=== PATIENT | male | born 1955 | race Caucasian/White ===

== ENCOUNTER 2018-03-06 15:19 | Emergency (ER) | payer OTHER ==
[~2018-03-06] VITALS: Ht 180.3 cm; Wt 100.8 kg
[~2018-03-06 15:19] MED LIST: ATEN50TA2 PO; WARF-82; [UNRECOGNIZED DRUG - OTHER]; [UNRECOGNIZED DRUG - REMARK]
[2018-03-06 15:27] VITALS: BP 153/76
--- NOTE | 2018-03-06 15:30 | NUR ---
PT AMBULATES TO BED 1, REPORT GIVEN TO BRIGHT MARIN
--- NOTE | 2018-03-06 15:45 | NUR ---
PATIENT PRESENTS TO ED WITH COMPLAINTS OF RECTAIL PAIN AND BLEEDING X 3 WEEKS. PATIENT STATES 3 WEEKS AGO IT STARTED OUT LIGHT AND NOW IT IS CLOTTING. DENIES N/V/D; SKIN IS PINK/WARM/DRY; AAOX4 WITH EVEN AND STEADY GAIT; LUNGS CLEAR BL; HR EVEN AND REGULAR; PT DENIES ANY FEVER, CP, SOB, OR COUGH AT THIS TIME; PATIENT STATES PAIN OF 2/10 AT THIS TIME; VSS; PATIENT POSITIONED FOR COMFORT; HOB ELEVATED; BEDRAILS UP X1; BED DOWN. ER MD MADE AWARE OF PT STATUS.
--- NOTE | 2018-03-06 16:10 | NUR ---
Patient appears to be resting comfortably in bed. Vital Signs within normal limits. Respirations even and unlabored.
--- NOTE | 2018-03-06 16:30 | NUR ---
PATIENT TAKEN TO CT
[2018-03-06] MEDS ORDERED: NACL 0.9% 1,000 ML IV SCH (16:37)
[2018-03-06] MEDS ORDERED: PANTOPRAZOLE 40 MG INJ VIAL IVP ONE (16:40)
[2018-03-06] MEDS ORDERED: FAMOTIDINE 20 MG/2 ML VIAL IVP ONE (16:40)
[2018-03-06 17:10] LABS: BASOPHILS # (AUTO) 0.1 K/uL (0.00-0.22); BASOPHILS % (AUTO) 0.6 % (0.0-2.0); EOSINOPHILS # (AUTO) 0.5 K/uL (0-0.4); EOSINOPHILS % (AUTO) 4.7 % (0.0-4.0); HEMATOCRIT 45.6 % (36-52); LYMPHOCYTES # (AUTO) 2.7 K/uL (2.0-11.5); LYMPHOCYTES % (AUTO) 27.8 % (20.5-51.1); MEAN CORPUSCULAR HEMOGLOBIN 31 pg (27-31); MEAN CORPUSCULAR HGB CONC 33 g/dL (33-37); MEAN CORPUSCULAR VOLUME 93.7 fL (80-94); MONOCYTES # (AUTO) 0.9 K/uL (0.8-1.0); MONOCYTES % (AUTO) 9.8 % (1.7-9.3); NEUTROPHILS # (AUTO) 5.5 K/uL (1.8-7.7); NEUTROPHILS % (AUTO) 57.1 % (42.2-75.2); PLATELET COUNT (AUTO) 216 K/uL (140-450); RED BLOOD CELL COUNT(AUTO) 4.86 MIL/uL (4.20-6.10); RED CELL DISTRIBUTION WIDTH 13.1 % (11.6-13.7); WHITE BLOOD COUNT (AUTO) 9.6 K/uL (4.8-10.8)
[2018-03-06 17:26] LABS: PROTHROMBIN TIME 10.6 secs (10.8-13.4)
[2018-03-06 17:28] LABS: ALBUMIN 3.5 g/dL (3.4-5.0); ANION GAP 6.7 (8-16); CARBON DIOXIDE 30.5 mmol/L (21-32); CREATININE 1.1 mg/dL (0.7-1.3); POTASSIUM 4.2 mmol/L (3.5-5.1); TOTAL BILIRUBIN 0.6 mg/dL (0.0-1.0)
--- NOTE | 2018-03-06 17:35 | NUR ---
Patient appears to be resting comfortably in bed. Vital Signs within normal limits. Respirations even and unlabored.
[2018-03-06] MEDS: NACL 0.9% 1,000 ML IV SCH ×2 (17:45→18:28)
[2018-03-06 19:17] VITALS: BP 148/87
--- NOTE | 2018-03-06 19:19 | NUR ---
Patient discharged with v/s stable. Written and verbal after care instructions given and explained. Patient verbalized understanding. Ambulatory with steady gait. All questions addressed prior to discharge. Advised to follow up with PMD.
--- NOTE | 2018-03-17 09:58 | NUR ---
EDIT FOR IV FLUIDS STARTED ON 03/06/18 AT 1828: START TIME 1828 END TIME 190 TOTAL AMOUNT INFUSED 999ML PAIN 10/26 NO ADVERSE REACTION NOTED AT THIS TIME
== END 2018-03-06 19:19 | disposition home or self-care (01) ==
LOC: MED 15:19
DX: K62.5 Hemorrhage of anus and rectum (principal); I10 Essential (primary) hypertension; Z79.899 Other long term (current) drug therapy
CPT/HCPCS: 36415; 74176; 80053; 82150; 83690; 85025; 85610; 85730; 86870; 86886; 86900; 86901; 93005; 96361; 96374; 96375; 99285; C9113; J3490; J7030

== ENCOUNTER 2018-03-09 14:54 | Inpatient (IN) | payer OTHER ==
[~2018-03-09] VITALS: Ht 180.3 cm; Wt 98.4 kg
[2018-03-09 15:00] VITALS: BP 150/82
--- NOTE | 2018-03-09 15:00 | NUR ---
PATIENT TRIAGED AT BEDSIDE
--- NOTE | 2018-03-09 15:15 | NUR ---
PT. CAME INTO ED DUE TO RECTAL BLEEDING X 2 WEEKS AD HEMATURIA. PT.STATES " I WAS HERE TUESDAY AND THEY SAID ALL MY RESULTS WERE NORMAL AND I HAD TO SEE A SPECIALIST , BUT WHEN I CALLED THEY DIDNT GIVE ME AN APPT UNTIL 45 DAYS OUT, IM STILL HAVING BLEEDING AND PAIN". PT. AAOX4, RR EVEN AND UNLABORED. 4/10 PAIN IN RECTUM AND DESCRIBED BURNING SENSATION. PT. DENIES SOB, DENIES CHEST PAIN, PT. DENIES ANY COUGH. PT. PROVIDED A URINE SAMPLE AND IT WAS BLOOD. PT.STATES " I HAVE BLACK STOOLS AND BLOOD ALSO WHEN I GO".Tutu THOMAS NOTIFIED. WILL CONTINUE TO MONITOR.
[2018-03-09 15:43] LABS: BASOPHILS % (AUTO) 0.5 % (0.0-2.0); EOSINOPHILS # (AUTO) 0.4 K/uL (0-0.4); HEMATOCRIT 45.8 % (36-52); HEMOGLOBIN 15.5 g/dL (12.0-18.0); LYMPHOCYTES # (AUTO) 2.3 K/uL (2.0-11.5); LYMPHOCYTES % (AUTO) 24.9 % (20.5-51.1); MEAN CORPUSCULAR HEMOGLOBIN 31 pg (27-31); MEAN CORPUSCULAR HGB CONC 34 g/dL (33-37); MEAN CORPUSCULAR VOLUME 92.3 fL (80-94); MONOCYTES % (AUTO) 10.4 % (1.7-9.3); NEUTROPHILS # (AUTO) 5.6 K/uL (1.8-7.7); NEUTROPHILS % (AUTO) 60.2 % (42.2-75.2); PLATELET COUNT (AUTO) 220 K/uL (140-450); RED BLOOD CELL COUNT(AUTO) 4.96 MIL/uL (4.20-6.10); RED CELL DISTRIBUTION WIDTH 12.7 % (11.6-13.7); WHITE BLOOD COUNT (AUTO) 9.2 K/uL (4.8-10.8)
[2018-03-09 16:00] LABS: ALBUMIN 3.5 g/dL (3.4-5.0); ANION GAP 10.2 (8-16); CARBON DIOXIDE 28.8 mmol/L (21-32); CREATININE 1.2 mg/dL (0.7-1.3); TOTAL BILIRUBIN 0.5 mg/dL (0.0-1.0)
--- NOTE | 2018-03-09 16:40 | NUR ---
PT. RESTING COMFORTABLY IN BED AAOX4, RR EVEN AND UNLABORED. BED IN LOWEST POSITION WILL CONTINUE TO MONITOR.
[2018-03-09] MEDS ORDERED: ACETAMINOPHEN 325 MG TAB PO PRN (16:50)
[2018-03-09] MEDS ORDERED: MORPHINE SULFATE 4 MG/ML SYR IVP PRN (16:50)
[2018-03-09] MEDS ORDERED: NACL 0.9% 1,000 ML IV SCH (16:50)
[2018-03-09] MEDS ORDERED: METOCLOPRAMIDE 10 MG/2 ML INJ VIAL IVP PRN (16:55)
--- NOTE | 2018-03-09 17:15 | NUR ---
PT ARRIVED ON THE UNIT WITH 2 E/R NURSES. PT IS AWAKE AND ORIENTED. PT ARRIVED IN A WHEELCHAIR. AMBULATED WELL TO THE BED. PT IS ON ROOM AIR. V/S WITHIN NORMAL LIMITS. SKIN INTACT. IV ON L UA 20G SL. NO COMPLAINTS OF PAIN. MRSA SCREENING DONE. EDUCATED PT REGARDING USE OF CALL LIGHT AND WHERE THE BATHROOM IS. ALL PERSONAL BELONGINGS IN SIDE DRAWERS. WILL CONTINUE TO MONITOR PT.
--- NOTE | 2018-03-09 17:23 | NUR ---
Patient will be admitted to care of DR. NARANJO . Admited to MED SURG . Will go to room 112B. Belongings list completed. Report to BRIGHT HUITRON .
[2018-03-09 17:52] VITALS: BP 139/89
--- NOTE | 2018-03-09 19:20 | NUR ---
ENDORSED PT TO THE CLINICAL APPLICATION MANAGER NURSE. PT IS IN STABLE CONDITION.
--- NOTE | 2018-03-09 19:30 | NUR ---
RECEIVED REPORT FROM [facility] DAY SHIFT NURSE, PT IN STABLE CONDITION. PT ADMITTED FOR GI BLEED. HE IS AO X4, SKIN INTACT, LUNGS CLEAR AND HE IS AMBULATORY. PT IN LOW BED WITH SIDE RAILS UP AND CALL FUENTES IN REACH. PT LAST BM WAS TODAY. NEW ORDERS NOTED FORM DR. NARANJO REGARDING COLONOSCOPY PREP FOR COLONOSCOPY TOMORROW. PT PROVIDED GOLYTLY AND INSTRUCTED TO DRINK A CUP Q 30 MINUTES. FAMILY AT BED SIDE. IV SITE R HAND 22G INTACT AND FLUSHED PATENT. IV FLUIDS NACL RUNNING AT 100MLS /HR. FAMILY AT BEDSIDE.
--- NOTE | 2018-03-09 21:30 | NUR ---
CONSENT SIGNED FOR COLONOSCOPY PROCEDURE, PT VERBALIZED UNDERSTANDING. PT WAS ENCOURAGED TO CONTINUE DRINKING GOLYTELY BOWEL PREP AND HE SAID HE WAS DRINKING THE GOLYTELY AND THAT HE WAS HAVING BM'S. WHICH HE SAID, WAS NOTED WITH A SMALL AMOUNT OF BLOOD. PT HAD URINATED IN URINAL AND URINE LOOKED YELLOW WITH NO TRACE OF BLOOD. PT DENIES PAIN A THIS TIME IV SITE PATENT AND CONTINUES TO RUN AT 100MLS AN HOUR BED IN LOW POSITION SIDE RAILS UP AND CALL FUENTES IN REACH.
[2018-03-09] MEDS ORDERED: BOWEL EVACUANT DRINK 4,000 ML PDS PO SCH (22:00)
[2018-03-09] MEDS ORDERED: BISACODYL 5 MG TABEC PO SCH (22:00)
[2018-03-10] MEDS ORDERED: BISACODYL 5 MG TABEC PO SCH (06:00)
--- NOTE | 2018-03-10 06:34 | NUR ---
PT FINISHED BOWEL PREP GOLYTELY THIS AM AND WAS GIVEN SCHEDULED DUCOLAX, PT SAID THAT HE HAD GONE TO TOILET AND HAD MANY LOOSE AND WATERY BM'S WITH NO BLOOD. NO C/O VOICED. PT VERBALIZED UNDERSTANDING TO BE NPO.
[2018-03-10 06:53] LABS: BASOPHILS % (AUTO) 0.4 % (0.0-2.0); EOSINOPHILS # (AUTO) 0.5 K/uL (0-0.4); HEMATOCRIT 45.7 % (36-52); HEMOGLOBIN 15.3 g/dL (12.0-18.0); LYMPHOCYTES # (AUTO) 2.5 K/uL (2.0-11.5); LYMPHOCYTES % (AUTO) 29.2 % (20.5-51.1); MEAN CORPUSCULAR HEMOGLOBIN 31 pg (27-31); MEAN CORPUSCULAR HGB CONC 34 g/dL (33-37); MEAN CORPUSCULAR VOLUME 93.6 fL (80-94); MONOCYTES # (AUTO) 0.8 K/uL (0.8-1.0); MONOCYTES % (AUTO) 8.8 % (1.7-9.3); NEUTROPHILS # (AUTO) 4.8 K/uL (1.8-7.7); NEUTROPHILS % (AUTO) 55.6 % (42.2-75.2); PLATELET COUNT (AUTO) 197 K/uL (140-450); RED BLOOD CELL COUNT(AUTO) 4.89 MIL/uL (4.20-6.10); RED CELL DISTRIBUTION WIDTH 12.9 % (11.6-13.7); WHITE BLOOD COUNT (AUTO) 8.7 K/uL (4.8-10.8)
[2018-03-10 07:19] LABS: ALBUMIN 3.4 g/dL (3.4-5.0); ANION GAP 10.9 (8-16); CARBON DIOXIDE 29.3 mmol/L (21-32); CREATININE 1.2 mg/dL (0.7-1.3); POTASSIUM 4.2 mmol/L (3.5-5.1); TOTAL BILIRUBIN 0.9 mg/dL (0.0-1.0)
--- NOTE | 2018-03-10 07:25 | NUR ---
RECEIVED REPORT FROM NIGHTSHIFT NURSE AT BEDSIDE. PATIENT IS ASLEEP BUT AROUSABLE AT THIS TIME. PATIENT ALERT AND ORIENTED X4. NO DISTRESS NOTED WITH PATIENT. PATIENT SHOWS NO SIGNS OF PAIN. PATIENT'S ABDOMEN APPEARS ROUND AND NON-TENDER. PER REPORT FROM NIGHTSHIFT NURSE, LAST SIGN OF BLOOD IN STOOL WAS AT 3:00 AM. INSTRUCTED PATIENT TO CALL IF THERE IS BLOOD IN STOOL. PATIENT AWARE OF PROCEDURE TODAY. LOWERED PATIENT'S BED TO LOWEST SETTING. CALL LIGHT WITHIN REACH OF PATIENT. UPDATED BOARD IN PATIENT'S ROOM. WILL CONTINUE TO MONITOR PATIENT.
--- NOTE | 2018-03-10 07:30 | NUR ---
REPORT GIVEN TO COLETTE NOVOA AT BEDSIDE FOR TRANSFER OF CARE PT IN STABLE CONDITION
[2018-03-10 08:00] VITALS: BP 132/82
--- NOTE | 2018-03-10 08:22 | NUR ---
PATIENT RESTING IN BED AT THIS TIME. NO COMPLAINTS OF PAIN. NO SIGNS OF DISTRESS. WILL CONTINUE TO MONITOR PATIENT.
[2018-03-10] MEDS ORDERED: PANTOPRAZOLE 40 MG INJ VIAL IVP SCH (09:00)
--- NOTE | 2018-03-10 10:05 | NUR ---
PATIENT ASLEEP AT THIS TIME. NO SIGNS OF PAIN. WILL CONTINUE TO MONITOR PATIENT.
--- NOTE | 2018-03-10 10:19 | NUR ---
PATIENT HAS BEEN SCREENED AND CATEGORIZED MODERATE NUTRITION RISK. PATIENT WILL BE SEEN WITHIN 3-5 DAYS OF ADMISSION. 03/12/18 03/14/[address]
--- NOTE | 2018-03-10 10:35 | NUR ---
FAXED INITIAL REVIEW TO [facility] [phone] PHONE BRII [phone]
[2018-03-10] MEDS ORDERED: fentaNYL 0.05 MG/ML VIAL ONE (10:53)
[2018-03-10] MEDS ORDERED: diphenhydrAMINE 50 MG/ML VIAL ONE (10:53)
[2018-03-10] MEDS ORDERED: MIDAZOLAM 2 MG/2 ML VIAL ONE (10:53)
--- NOTE | 2018-03-10 11:35 | NUR ---
PATIENT LEFT THE UNIT WITH O.R. NURSES FOR PROCEDURE. PATIENT LEFT IN STABLE CONDITION.
[2018-03-10] MEDS: MIDAZOLAM 2 MG/2 ML VIAL IVP SCH ×2 (12:08→13:00)
[2018-03-10] MEDS: fentaNYL 0.05 MG/ML VIAL IVP SCH ×2 (12:09→13:00)
--- NOTE | 2018-03-10 12:40 | NUR ---
PATIENT ARRIVED BACK TO THE UNIT WITH OR NURSES. PATIENT IS IN STABLE CONDITION. RECEIVED REPORT FROM O.R. NURSES. VITAL SIGNS ARE WITHIN NORMAL LIMITS: 98.3, 108/70, 77 HR, 17 RR, 97% OS SATURATION. WILL CONTINUE TO MONITOR PATIENT.
--- NOTE | 2018-03-10 14:22 | NUR ---
PATIENT ABLE TO TOLERATE CLEAR LIQUID FOODS. NO DISTRESS NOTED.
[2018-03-10] MEDS ORDERED: SIMV40TA1 PO (15:45)
[2018-03-10] MEDS ORDERED: MULT-2000 PO (15:46)
--- NOTE | 2018-03-10 15:50 | NUR ---
PATIENT ABLE TO AMBULATE TO RESTROOM AND BACK. PATIENT URINATED AT THIS TIME. WILL CONTINUE TO MONITOR PATIENT.
[2018-03-10 17:00] VITALS: BP 125/80
--- NOTE | 2018-03-10 17:00 | NUR ---
PATIENT SIGNED ALL PAPERS AND IS AWARE OF ALL DISCHARGE INSTRUCTIONS. REMOVED PATIENT'S IV LINE WITH CATHETER STILL INTACT. REMOVED PATIENT'S IDENTIFICATION BAND. PATIENT CHANGED INTO HIS CLOTHES. PATIENT GRABBED ALL BELONGINGS AND AMBULATED OFF THE UNIT WITH SON. PATIENT LEFT IN STABLE CONDITION.
== END 2018-03-10 17:00 | disposition home or self-care (01) | DRG 254 ==
LOC: MED 14:54 → MTU 16:55
PROVIDERS: ADMIT Hospitalist; ATTEND Hospitalist
PROC: 0DJD8ZZ Inspection of Lower Intestinal Tract, Via Natural or Artificial Opening Endoscopic (ICD-10-PCS; principal; 2018-03-10 12:00)
DX: K64.0 First degree hemorrhoids (principal); I10 Essential (primary) hypertension; R74.0 Nonspecific elevation of levels of transaminase and lactic acid dehydrogenase [LDH]
CPT/HCPCS: 36415; 80053; 85025; 85610; 85730; 87081; 99285; C9113; J1200; J2250; J3010; J7030

== ENCOUNTER 2018-03-13 17:31 | Emergency (ER) | payer OTHER ==
[~2018-03-13] VITALS: Ht 180.3 cm; Wt 98.0 kg
[~2018-03-13 17:31] MED LIST changes: -ATEN50TA2 PO; +MULT-2000 PO; +SIMV40TA1 PO; -WARF-82; -[UNRECOGNIZED DRUG - OTHER]; -[UNRECOGNIZED DRUG - REMARK]
[2018-03-13 17:42] VITALS: BP 134/99
--- NOTE | 2018-03-13 17:49 | NUR ---
PT AMBULATED TO ER BED 06
--- NOTE | 2018-03-13 17:53 | NUR ---
REPORT GIVEN TO BRIGHT LAUREN
--- NOTE | 2018-03-13 18:00 | NUR ---
63m bib self with c/o rectal bleeding since 03/11/18 s/p colonoscopy. Patient describes the bleeding as brown/dark red. Patient states he needs to go to the bathroom q2hrs d/t rectal bleeding. Patient denies any dizzines but reports fatigue. Patient reports of 3/10 rectal pain. Patient is aox4 with steady gait. GCS=15. Skin is dry/warm/color appriopriate for ethnicity. VSS. Er md aware of patient status. Will continue to monitor.
[2018-03-13 18:58] VITALS: BP 132/87
--- NOTE | 2018-03-13 18:58 | NUR ---
Patient discharged with v/s stable. Written and verbal after care instructions given and explained. Patient alert, oriented and verbalized understanding of instructions. Ambulatory with steady gait. All questions addressed prior to discharge. ID band removed. Patient advised to follow up with PMD. Rx of Colace given. Patient educated on indication of medication including possible reaction and side effects. Opportunity to ask questions provided and answered.
== END 2018-03-13 18:58 | disposition home or self-care (01) ==
LOC: MED 17:31
DX: K64.8 Other hemorrhoids (principal); Z79.899 Other long term (current) drug therapy
CPT/HCPCS: 99282